=== PATIENT | female | born 1965 | race Caucasian/White ===

== ENCOUNTER 2017-04-28 19:50 | Emergency (ER) | payer MEDICAID ==
[2017-04-28] MEDS ORDERED: NS 1,000 ML IV ONE (20:02)
[2017-04-28 20:11] VITALS: RESP 16; TEMP 97.7
[2017-04-28 20:20] LABS: PLATELET COUNT 221 10^3/uL (150-400)
[2017-04-28] MEDS ORDERED: HYDROmorphONE/DILAUDID 2 MG/ML INJ IVP ONE ×2 (20:27→21:11)
[2017-04-28 20:31] LABS: INR 1.22 (0.83-1.16); PROTIME(PATIENT) 15.2 SEC (12.0-15.0)
--- NOTE | 2017-04-28 21:29 | EDPHY ---
H & P Stated Complaint: told she was preg 2.5 wks ago, bleeding 2 wks ago,now w/ cramping Time Seen by Provider: 04/28/17 19:56 HPI/ROS: This patient was seen at [facility] emergency department 2 and half weeks ago with positive -1st trimester but 2 weeks ago had significant vaginal bleeding and passed what seemed like tissue to her given the impression that she had a miscarriage. She now presents with lower belly pain 2 hr prior to arrival after mild cramping earlier in the day. She describes severe pain 9/10 intensity that is a combination of cramping and sharp pain extends to her back and feels similar to labor pains she had been years ago. She has had some ongoing vaginal spotting since the heavier bleeding 2 weeks ago. She also reports fatigue today. She took 2 Percocets at home at 4:00 p.m. With mild improvement and notes no other exacerbating factors. Her daughter drove her in by private vehicle for evaluation of her pelvic and back pain. ROS: Constitutional: No fevers, although she has had chills. HEENT: No URI symptoms or other complaints. Pulmonary: Mild cough at nights which she attributes to smoking. Cardiovascular: Mild chest tightness today 5/10 intensity. This is substernal in location radiates to her left shoulder. She denies any pleuritic pain associated with this. GI: Normal bowel movements. She does feel some bloating in her lower belly. : No urinary symptoms. Otherwise as above. Integumentary: No skin rash Endocrine no complaints. Complete review of symptoms otherwise negative. 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 General Appearance: Alert, no distress. Eyes: Pupils equal and round no pallor or injection. ENT, Mouth: Mucous membranes moist. Respiratory: There are no retractions, lungs are clear to auscultation. Cardiovascular: Regular rate and rhythm. No murmur gallop or rub Gastrointestinal: She has a large midline surgical incision scar that is clean dry intact. She has exquisite suprapubic and right lower quadrant tenderness with no guarding or rebound. Neurological: GCS 15. No focal deficits. Skin: Warm and dry, no rashes. Musculoskeletal: Neck is supple nontender. Extremities are symmetrical, full range of motion. Psychiatric: Slightly flat affect. Otherwise mood and affect are normal DIFFERENTIAL DIAGNOSIS: After history and physical exam differential diagnosis was considered for retained products of conception, ectopic , pelvic thrombosis, UTI, appendicitis, mesenteric adenitis, diverticulitis, myocardial ischemic pain, GERD Constitutional: Initial Vital Signs Temperature (C) 36.5 C 04/28/17 20:04 Heart Rate 81 04/28/17 20:04 Respiratory Rate 16 04/28/17 20:04 Blood Pressure 115/71 04/28/17 20:04 O2 Sat (%) 96 04/28/17 20:04 O2 Delivery Mode Room Air Allergies/Adverse Reactions: No Known Allergies Allergy (Verified 02/27/12 14:07) Home Medications: Medication Instructions Recorded COUMADIN 1 09/22/09 METOPROLOL SUCCINATE 50 mg PO PRN 09/22/09 URSODIOL 10/07/09 LEVOTHYROXINE SODIUM 03/18/10 Lasix 10/22/13 Ondansetron Odt [Zofran Odt] 4 - 8 mg PO Q4PRN PRN #4 tab 10/22/13 Potassium 10/22/13 Zoloft 100mg (RX) 10/22/13 Medical Decision Making - Diagnostics EKG Interpretation: 12 lead EKG performed at 10:05 p.m.-indication chest tightness Reveals sinus rhythm at 72 Intervals: Normal throughout [place]: Normal throughout ST segments: Normal throughout Overall assessment: Normal EKG Imaging: Discussed imaging studies w/ callisthenics instructor Radiologist ED Course/Re-evaluation: A review of the patient's labs reveals normal CBC, normal metabolic panel, quant that is just above negative, negative D-dimer, INR is subtherapeutic 1.2. Her urinalysis is normal exception of positive leuk esterase. IV Dilaudid 1 mg followed by 0.5 mg with ongoing pain followed by Levsin 0.25 and Toradol 30 mg IV At 10:20 p.m. I discussed the patient's ultrasound findings with Dr. Hill- left sided uterine fibroid 3.9 cm in size. No evidence of at this time retained products of conception. Appendix is not visualized. No evidence of thrombotic disease. Discussion: The patient is presentation reveals only uterine fibroid which may be responsible for her pain. She also had hyperactive bowel sounds [place] at the possibly of abdominal cramps contributing to her symptoms. Find no evidence of ectopic , pelvic thrombosis, surgical abdomen or other concerning findings. Counseled patient regarding this. Her INR is subtherapeutic and I recommended that she increase dose to 1.5 mg for the next 2 days and then 1.5 mg 2 times a week and her current 1 mg the other days with a recheck of her INR sometime the next 5-7 days. Will plan to send her out on Tylenol, tramadol Levsin for any ongoing abdominal pain with plan to follow up with OBGYN for any ongoing symptoms. Counseled regarding this and answered all her questions prior to discharge home. - Data Points Laboratory Results: Laboratory Results 04/28/17 20:15 04/28/17 20:15 04/28/17 04/28/17 04/28/17 21:59 20:15 20:15 WBC RBC Hgb Hct MCV MCH MCHC RDW Plt Count MPV Neut % (Auto) Lymph % (Auto) [place] % (Auto) Eos % (Auto) Baso % (Auto) Nucleat RBC Rel Count Absolute Neuts (auto) Absolute Lymphs (auto) Absolute Monos (auto) Absolute Eos (auto) Absolute Basos (auto) Absolute Nucleated RBC Immature Gran % Immature Gran # PT 15.2 SEC H SEC (12.0-15.0) INR 1.22 H (0.83-1.16) D-Dimer < 0.27 ug/mLFEU ug/mLFEU (0.00-0.50) Sodium Potassium Chloride Carbon Dioxide Anion Gap BUN Creatinine Estimated GFR Glucose Calcium Beta HCG, Quant Urine Color YELLOW Urine Appearance CLEAR Urine pH 6.5 (5.0-7.5) Ur Specific [place] 1.010 (1.002-1.030) Urine Protein NEGATIVE (NEGATIVE) Urine Ketones NEGATIVE (NEGATIVE) Urine Blood TRACE H (NEGATIVE) Urine Nitrate NEGATIVE (NEGATIVE) Urine Bilirubin NEGATIVE (NEGATIVE) Urine Urobilinogen 0.2 EU EU (0.2-1.0) Ur Leukocyte Esterase TRACE H (NEGATIVE) Urine RBC 1-3 /hpf /hpf (0-3) Urine WBC 1-3 /hpf /hpf (0-3) Ur Epithelial Cells NONE SEEN /lpf /lpf (NONE-1+) Urine Bacteria TRACE /hpf H /hpf (NONE SEEN) Urine Mucus 1+ /lpf /lpf (NONE-1+) Urine Glucose NEGATIVE (NEGATIVE) 04/28/17 04/28/17 20:15 20:15 WBC 5.71 10^3/uL 10^3/uL (3.80-9.50) RBC 4.69 10^6/uL 10^6/uL (4.18-5.33) Hgb 13.7 g/dL g/dL (12.6-16.3) Hct 41.0 % % (38.0-47.0) MCV 87.4 fL fL (81.5-99.8) MCH 29.2 pg pg (27.9-34.1) MCHC 33.4 g/dL g/dL (32.4-36.7) RDW 13.9 % % (11.5-15.2) Plt Count 221 10^3/uL 10^3/uL (150-400) MPV 10.2 fL fL (8.7-11.7) Neut % (Auto) 59.2 % % (39.3-74.2) Lymph % (Auto) 31.9 % % (15.0-45.0) [place] % (Auto) 6.7 % % (4.5-13.0) Eos % (Auto) 1.6 % % (0.6-7.6) Baso % (Auto) 0.4 % % (0.3-1.7) Nucleat RBC Rel Count 0.0 % % (0.0-0.2) Absolute Neuts (auto) 3.39 10^3/uL 10^3/uL (1.70-6.50) Absolute Lymphs (auto) 1.82 10^3/uL 10^3/uL (1.00-3.00) Absolute Monos (auto) 0.38 10^3/uL 10^3/uL (0.30-0.80) Absolute Eos (auto) 0.09 10^3/uL 10^3/uL (0.03-0.40) Absolute Basos (auto) 0.02 10^3/uL 10^3/uL (0.02-0.10) Absolute Nucleated RBC 0.00 10^3/uL 10^3/uL (0-0.01) Immature Gran % 0.2 % % (0.0-1.1) Immature Gran # 0.01 10^3/uL 10^3/uL (0.00-0.10) PT INR D-Dimer Sodium 140 mEq/L mEq/L (135-145) Potassium 3.6 mEq/L mEq/L (3.5-5.2) Chloride 110 mEq/L mEq/L (97-110) Carbon Dioxide 22 mEq/l mEq/l (22-31) Anion Gap 8 mEq/L mEq/L (8-16) BUN 13 mg/dL mg/dL (7-23) Creatinine 0.8 mg/dL mg/dL (0.6-1.0) Estimated GFR > 60 Glucose 99 mg/dL mg/dL (70-100) Calcium 9.7 mg/dL mg/dL (8.5-10.4) Beta HCG, Quant 5.65 mIU/mL H mIU/mL (0.00-4.83) Urine Color Urine Appearance Urine pH Ur Specific [place] Urine Protein Urine Ketones Urine Blood Urine Nitrate Urine Bilirubin Urine Urobilinogen Ur Leukocyte Esterase Urine RBC Urine WBC Ur Epithelial Cells Urine Bacteria Urine Mucus Urine Glucose Medications Given: Discontinued Medications Hydromorphone HCl (Dilaudid) 1 mg IVP EDNOW ONE Stop: 04/28/17 20:28 Last Admin: 04/28/17 20:36 Dose: 1 mg Hydromorphone HCl (Dilaudid) 0.5 mg IVP EDNOW ONE Stop: 04/28/17 21:12 Last Admin: 04/28/17 21:14 Dose: 0.5 mg Hyoscyamine Sulfate (Levsin, Hyomax-Sl) 0.25 mg PO EDNOW ONE Stop: 04/28/17 21:59 Last Admin: 04/28/17 22:14 Dose: 0.25 mg Sodium Chloride (Ns) 1,000 mls @ 0 mls/hr IV EDNOW ONE; Wide Open PRN Reason: Protocol Stop: 04/28/17 20:03 Last Admin: 04/28/17 20:27 Dose: 1,000 mls Ketorolac Tromethamine (Toradol) 30 mg IVP EDNOW ONE Stop: 04/28/17 22:09 Last Admin: 04/28/17 22:14 Dose: 30 mg Departure - Departure Disposition: Home, Routine, Self-Care Clinical Impression: Uterine fibroid Qualifiers: Uterine leiomyoma location: unspecified location Qualified Code(s): D25.9 - Leiomyoma of uterus, unspecified Condition: Good Instructions: Pelvic Pain in Women (ED) Additional Instructions: Diagnosis: Uterine fibroid A ultrasound revealed no existing at this time. He had a miscarriage. He also have a uterine fibroid 3.9 cm in size may be contributing to ear pain. Your INR is currently subtherapeutic at 1.2. Plan: Take 1.5 mg of Coumadin for the next 2 days and then take 1 mg daily but 1.5 mg 2 times a week for instance on Friday and Friday. Recheck your INR in 5-7 days. For pain-take Levsin and tramadol and Tylenol as needed. No driving, alcohol or come tramadol. Follow up with her OBGYN physician for any ongoing symptoms Return emergency department for any significant worsening despite the treatment plan. Referrals: CASSI HYLTON MD [Other] - As per Instructions
[2017-04-28] MEDS ORDERED: HYOSCYAMINE SULFATE 0.125 MG TAB PO ONE (21:58)
--- NOTE | 2017-04-28 22:07 | CPEKG ---
Heart Rate: 72 RR Interval: 833 P-R Interval: 152 QRSD Interval: 82 QT Interval: 420 QTC Interval: 460 P [place]: 24 QRS [place]: 50 T Wave [place]: 52 EKG Severity - NORMAL ECG - EKG Impression: SINUS RHYTHM Electronically Signed By: Lalo Carreno 28-Apr-2017 22:30:18
[2017-04-28] MEDS ORDERED: KETOROLAC 30 MG/1 ML SDV IVP ONE (22:08)
[2017-04-28 22:56] VITALS: BP 120/72; PULSE 78; O2SAT 99
== END 2017-04-28 22:50 | disposition home or self-care (01) ==
LOC: CED 19:50
DX: D25.9 Leiomyoma of uterus, unspecified (principal); F17.210 Nicotine dependence, cigarettes, uncomplicated; I10 Essential (primary) hypertension; E86.9 Volume depletion, unspecified; Z79.01 Long term (current) use of anticoagulants; Z90.49 Acquired absence of other specified parts of digestive tract
CPT/HCPCS: 76705-PO; 80048-PO; 81003-PO; 81015-PO; 84702-PO; 85025-PO; 85378-PO; 85610-PO; 96374; J1170; J1885

== ENCOUNTER 2017-07-01 18:23 | Emergency (ER) | payer MEDICAID ==
[2017-07-01] MEDS ORDERED: NS 1,000 ML IV ONE ×2 (18:54→19:07)
[2017-07-01] MEDS ORDERED: fentaNYL 100 MCG/2 ML INJ IVP ONE (19:07)
[2017-07-01] MEDS ORDERED: ONDANSETRON 4 MG/2 ML VIAL IVP ONE (19:07)
[2017-07-01 19:16] LABS: PLATELET COUNT 174 10^3/uL (150-400)
[2017-07-01 19:31] LABS: INR 1.23 (0.83-1.16); PROTIME(PATIENT) 15.3 SEC (12.0-15.0)
[2017-07-01] MEDS ORDERED: HYDROmorphONE/DILAUDID 2 MG/ML INJ IVP ONE (19:52)
--- NOTE | 2017-07-01 21:19 | EDPHY ---
H & P Time Seen by Provider: 07/01/17 18:40 HPI/ROS: CHIEF COMPLAINT: Left flank pain HISTORY OF PRESENT ILLNESS: Patient states she developed left flank pain yesterday. Initially mild but constant with significant worsening after around 3 o'clock today. She has some nausea but no vomiting or diarrhea. She does describe some burning with urination over the same period of time. She has had chills but no fever. She states that it feels like previous kidney stones. She describes episode approximately 2 months ago where she had multiple stones and required a stent. She was under the care Dr. Griffin. She denies shortness of breath, chest pain, headache. She has had no other recent illnesses. REVIEW OF SYSTEMS: Constitutional: No fever, no chills. Eyes: No discharge. ENT: No sore throat. Cardiovascular: No chest pain, no palpitations. Respiratory: No cough, no shortness of breath. Gastrointestinal: Per HPI Genitourinary: Per HPI Musculoskeletal: No back pain. Skin: No rashes. Neurological: No headache. General Appearance: Alert, moderate distress. Eyes: Pupils equal and round no pallor or injection. ENT, Mouth: Mucous membranes moist. Respiratory: There are no retractions, lungs are clear to auscultation. Cardiovascular: Regular rate and rhythm. Gastrointestinal: Abdomen is soft with some tenderness to the left flank region. Bilateral CVA tenderness left greater than right, no masses, bowel sounds normal. Neurological: Alert, no focal deficits. Skin: Warm and dry, no rashes. Musculoskeletal: Neck is supple nontender. Extremities are symmetrical, full range of motion, no edema. Psychiatric: Patient is oriented X 3, there is no agitation. Medical/surgical history: Renal stones with stenting. Liver resection, cholecystectomy, hepatitis-B, heart ablation, pulmonary embolism, thyroid disorder, hypertension. Social history: Former smoker. Smoking Status: Former smoker Constitutional: Initial Vital Signs Temperature (C) 36.5 C 07/01/17 18:42 Heart Rate 63 07/01/17 18:42 Respiratory Rate 18 07/01/17 18:42 Blood Pressure 141/77 H 07/01/17 18:42 O2 Sat (%) 97 07/01/17 18:42 O2 Delivery Mode Room Air Allergies/Adverse Reactions: No Known Allergies Allergy (Verified 07/01/17 18:41) Home Medications: Medication Instructions Recorded COUMADIN 1 09/22/09 METOPROLOL SUCCINATE 50 mg PO PRN 09/22/09 URSODIOL 10/07/09 LEVOTHYROXINE SODIUM 03/18/10 Lasix 10/22/13 Ondansetron Odt [Zofran Odt] 4 - 8 mg PO Q4PRN PRN #4 tab 10/22/13 Potassium 10/22/13 Zoloft 100mg (RX) 10/22/13 Hyoscyamine Sulfate [Levsin, 0.125 - 0.25 mg SL Q6 PRN #20 tab 04/28/17 Hyomax-Sl 0.125 mg (*)] traMADol [Ultram 50 mg (*)] 50 - 100 mg PO Q4 PRN #20 tab 04/28/17 Cephalexin [Keflex (*)] 500 mg PO QID #28 cap 07/01/17 Medical Decision Making ED Course/Re-evaluation: Multiple re-evaluations during ED course. Symptoms improved but never completely resolved in regards to pain and nausea. CT scan shows bilateral nephrolithiasis but no signs of obstructive stone. No other abnormalities as discussed with radiologist. Patient offered admission as pain control poor in the emergency department but she declined. She was given antibiotics in the emergency department for likely pyelonephritis. She will be continued on oral antibiotics as outpatient. I discussed with her the importance of complete treatment of this infection and encouraged her to return to the emergency department if she worsens in any way. Differential Diagnosis: Differential diagnosis includes but not limited to kidney stone, pyelonephritis , perinephric abscess, other acute intra-abdominal process. After evaluation likely pyelonephritis without signs of obstructing stone or other acute intra- abdominal abnormality. Patient without signs of urosepsis and although she declined admission likely will do well if she takes antibiotics as prescribed. Encouraged to see her primary care physician in the next few days. Understands return precautions. Stable for discharge. - Data Points Laboratory Results: Laboratory Results 07/01/17 19:03 07/01/17 19:03 Medications Given: Discontinued Medications Hydrocodone Bitart/Acetaminophen ([place] 5/325mg Prepack#6) 1 btl TAKEHOME EDNOW ONE Stop: 07/01/17 21:22 Last Admin: 07/01/17 21:35 Dose: 1 btl Fentanyl (Sublimaze) 50 mcg IVP EDNOW ONE Stop: 07/01/17 19:08 Last Admin: 07/01/17 19:17 Dose: 50 mcg Hydromorphone HCl (Dilaudid) 1 mg IVP EDNOW ONE Stop: 07/01/17 19:53 Last Admin: 07/01/17 19:58 Dose: 1 mg Sodium Chloride (Ns) 1,000 mls @ 0 mls/hr IV EDNOW ONE; Wide Open PRN Reason: Protocol Stop: 07/01/17 18:55 Last Admin: 07/01/17 19:17 Dose: 1,000 mls Sodium Chloride (Ns) 1,000 mls @ 0 mls/hr IV EDNOW ONE; Wide Open PRN Reason: Protocol Stop: 07/01/17 19:08 Last Admin: 07/01/17 19:58 Dose: 1,000 mls Ceftriaxone Sodium/Dextrose (Rocephin 1 Gm (Premix)) 50 mls @ 100 mls/hr IV EDNOW ONE PRN Reason: Protocol Stop: 07/01/17 20:34 Last Admin: 07/01/17 20:17 Dose: 50 mls Ondansetron HCl (Zofran) 4 mg IVP EDNOW ONE Stop: 07/01/17 19:08 Last Admin: 07/01/17 19:17 Dose: 4 mg Ondansetron HCl (Zofran Odt 4 Mg Prepack#2) 1 btl TAKEHOME EDNOW ONE Stop: 07/01/17 21:22 Last Admin: 07/01/17 21:34 Dose: 1 btl Departure - Departure Disposition: Home, Routine, Self-Care Clinical Impression: Acute pyelonephritis Condition: Fair Instructions: Hydrocodone/Acetaminophen (By mouth), Ondansetron (By mouth), Urinary Tract Infection in Women (ED) Additional Instructions: Stay well hydrated, start antibiotics 1st thing tomorrow morning. [place] for pain and Zofran for nausea. Follow up with her primary care physician in the next 1 to 2 days without fail. Return to the emergency department if symptoms worsen. Referrals: CASSI MARQUIS [Other] - As per Instructions Prescriptions: Cephalexin [Keflex (*)] 500 mg PO QID #28 cap
[2017-07-01] MEDS ORDERED: HYDROCOD/APAP 5/325 PREPACK#6 BTL TAKEHOME ONE (21:21)
[2017-07-01] MEDS ORDERED: ONDANSETRON 4MG PREPACK#2 BTL TAKEHOME ONE (21:21)
[2017-07-01 21:27] VITALS: BP 119/70
== END 2017-07-01 21:42 | disposition home or self-care (01) ==
LOC: CED 18:23
DX: N10 Acute pyelonephritis (principal); B96.89 Other specified bacterial agents as the cause of diseases classified elsewhere; E86.9 Volume depletion, unspecified; Z87.891 Personal history of nicotine dependence
CPT/HCPCS: 74176-PO; 80048-PO; 80076-PO; 81003-PO; 81015-PO; 83690-PO; 85025-PO; 85610-PO; 85730-PO; 96365; J0696; J1170; J2405; J3010

== ENCOUNTER 2017-11-24 18:50 | Emergency (ER) | payer MEDICAID ==
[2017-11-24] MEDS ORDERED: traMADol 50 MG TAB PO ONE (19:18)
[2017-11-24] MEDS ORDERED: ACETAMINOPHEN 500 MG TAB PO ONE (19:18)
[2017-11-24 19:30] VITALS: BP 99/57
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
== END 2017-11-24 19:29 | disposition home or self-care (01) ==
LOC: CED 18:50
DX: T24.211A Burn of second degree of right thigh, initial encounter (principal); F17.200 Nicotine dependence, unspecified, uncomplicated; X12.XXXA Contact with other hot fluids, initial encounter; Y92.9 Unspecified place or not applicable; Y93.9 Activity, unspecified; Y99.9 Unspecified external cause status

== ENCOUNTER → 2018-04-02 | Outpatient (CLI) | payer MEDICAID | LOC: FIMAGING 18:42 | PROVIDERS: ATTEND Psychiatry & Neurology Neurology | DX: R56.9 Unspecified convulsions (principal) ==

== ENCOUNTER 2018-04-11 16:14 | Emergency (ER) | payer MEDICAID ==
[2018-04-11 16:29] VITALS: BP 101/61
--- NOTE | 2018-04-11 16:51 | EDPHY ---
H & P Time Seen by Provider: 04/11/18 16:28 HPI/ROS: HPI Sore throat, muscle aches and body aches. 52-year-old female by private vehicle with her . This patient reports 2 day onset of fever, sore throat, muscle aches and body aches, nasal congestion with clear rhinorrhea, intermittent headache, fatigue. ROS: Constitutional: As above. Eyes: No discharge. No changes in vision. ENT: As above. Respiratory: No cough. No shortness of breath. Cardiac: No chest pain, no palpitations. Gastrointestinal: No abdominal pain, no vomiting, no diarrhea. Genitourinary: No hematuria. No dysuria or increased frequency with urination. Musculoskeletal: No back pain. No neck pain. As above. Skin: No rashes. Neurological: As above. No focal weakness or altered sensation. Past medical history: Renal stones with stenting, liver resection, hepatitis-B , hypertension, pulmonary embolism, on Coumadin, heart ablation, hypothyroid. Social history: Former smoker. No alcohol. Here with her . Physical Exam: General Appearance: Alert, she appears uncomfortable but not in distress. This patient is responding to questions appropriately and in full sentences. This patient appears well-hydrated and well-nourished. Eyes: Pupils equal and round no pallor or injection. No lid edema, erythema or injection. ENT, Mouth: Mucous membranes are moist. Diffuse uvular and posterior pharyngeal erythema with mild edema. No asymmetry suggestive of abscess. No exudates. No stridor on auscultation of her neck. Her upper airway sounds are normal. No voice changes. No cervical, submandibular, submental lymphadenopathy. Respiratory: There are no retractions, lungs are clear to auscultation with good air movement bilaterally. Cardiovascular: Regular rate and rhythm. No murmur. Neurological: Motor sensory function is grossly intact. Cranial nerves are normal. Gait is normal. Skin: Warm and dry, no rashes. Musculoskeletal: Neck is supple and nontender. No pain on flexion of her neck. Extremities are symmetrical. All joints range without pain or impingement. Psychiatric: No agitation. No depression. Database: Strep-negative. EKG: Imaging: Procedures: Emergency department course: Triage vital signs reviewed and are within normal limits. Strep assay ordered. The patient does not want to take ibuprofen secondary to her Coumadin. She also cannot take Tylenol because of her history of hepatitis-B and liver resection. She tells me however that she took Percocet prior to coming to the emergency department. She also took morphine this morning. She takes narcotics for chronic pain. She is aware the Percocet contains Tylenol. Her presentation is most consistent with influenza. I discussed treating her with Tamiflu. She currently is at 48 hr of symptom onset. She would like to be prescribed this medication. She does feel comfortable going home with her . She has been instructed to follow up with her primary care physician on Friday for re-evaluation. Supportive care was discussed with her. Return to emergency department precautions reviewed with both her and her . All of their questions were answered. The patient was discharged in good condition with her . Differential Diagnosis: The differential diagnosis on this patient includes but is not limited to influenza, viral syndrome, streptococcal pharyngitis. Retropharyngeal abscess, peritonsillar abscess, tracheitis, epiglottitis unlikely. This represents a partial list of diagnoses considered. These considerations are based on history , physical exam, past history, reassessment and diagnostic testing. Smoking Status: Former smoker Constitutional: Initial Vital Signs Temperature (C) 37.2 C 04/11/18 16:24 Heart Rate 94 04/11/18 16:24 Respiratory Rate 16 04/11/18 16:24 Blood Pressure 101/61 04/11/18 16:24 O2 Sat (%) 94 04/11/18 16:24 O2 Delivery Mode Room Air Allergies/Adverse Reactions: gabapentin Allergy (Verified 04/11/18 16:19) zolpidem [From Ambien] Allergy (Verified 04/11/18 16:19) Home Medications: Medication Instructions Recorded COUMADIN 1 09/22/09 METOPROLOL SUCCINATE 50 mg PO PRN 09/22/09 URSODIOL 10/07/09 LEVOTHYROXINE SODIUM 03/18/10 Lasix 10/22/13 Ondansetron Odt [Zofran Odt] 4 - 8 mg PO Q4PRN PRN #4 tab 10/22/13 Potassium 10/22/13 Zoloft 100mg (RX) 10/22/13 Hyoscyamine Sulfate [Levsin, 0.125 - 0.25 mg SL Q6 PRN #20 tab 04/28/17 Hyomax-Sl 0.125 mg (*)] Keppra 04/11/18 Oseltamivir Phosphate [Tamiflu 75 75 mg PO BID #10 cap 04/11/18 mg (RX)] Percocet 5-325 mg Tablet 04/11/18 Medical Decision Making - Data Points Medications Given: Discontinued Medications Oseltamivir Phosphate (Tamiflu) 75 mg PO EDNOW ONE Stop: 04/11/18 17:13 Last Admin: 04/11/18 17:20 Dose: 75 mg Point of Care Test Results: Strep Strep Throat Swab Collection 04/11/18 Date Strep Throat Swab Swab 16:40 Collection Time Strep Result Not Detected Departure - Departure Disposition: Home, Routine, Self-Care Clinical Impression: Influenza Condition: Good Instructions: Oseltamivir (By mouth), Influenza (ED) Additional Instructions: Read and follow provided instructions. Follow-up with your primary care physician on Friday for re-evaluation as discussed. Take your medication as prescribed. Take Tamiflu, influenza antibiotic as prescribed through entire course of treatment. Keep yourself well hydrated. Drink lots of fluids. Get plenty of rest. Return to the emergency department for worsening symptoms, worsening sore throat , difficulty breathing, voice changes or other serious concerns. Referrals: Cherelle Martel DO [Primary Care Provider] - As per Instructions Prescriptions: Oseltamivir Phosphate [Tamiflu 75 mg (RX)] 75 mg PO BID #10 cap
[2018-04-11] MEDS ORDERED: OSELTAMIVIR PHOSPHATE 75 MG CAP PO ONE (17:12)
== END 2018-04-11 17:20 | disposition home or self-care (01) ==
LOC: CED 16:14
DX: J11.1 Influenza due to unidentified influenza virus with other respiratory manifestations (principal)
CPT/HCPCS: 99283-ER

== ENCOUNTER → 2018-05-26 | Outpatient (CLI) | payer MEDICAID ==
--- NOTE | 2018-05-26 14:41 | CPEEG ---
[f rep st] ELECTROENCEPHALOGRAM FOUR-HOUR VIDEO EEG DATE OF STUDY: 05/26/2018 DATE OF INTERPRETATION: 05/26/2018 INTERPRETATION: This 4-hour video EEG recording is normal. There were no potentially epileptogenic abnormalities present during the awake or sleep recordings. The patient did not have any clinical ev ents during the video EEG monitoring session. REPORT: This 4-hour video EEG contains 9 hertz alpha activity to the posterior head regions. There was no abnormal activation at rest, during photic stimulation or hyperventilation. The patient becam e drowsy and fell asleep during the study. During drowsiness, there was bitemporal theta activity, w hich is a normal drowsy variant. There was no abnormal activation during drowsiness, sleep, or durin g times of arousal. The patient did not have any clinical events during the video EEG monitoring jeimy agarwal. /[id number]/MODL
== END ==
LOC: FCPNEURO 08:15
PROVIDERS: ATTEND Psychiatry & Neurology Neurology
DX: R56.9 Unspecified convulsions (principal)

== ENCOUNTER 2018-07-11 21:18 | Emergency (ER) | payer MEDICAID ==
[2018-07-11] MEDS ORDERED: NS 1,000 ML IV ONE (21:48)
[2018-07-11] MEDS ORDERED: MAG HYDROX/AL HYDROX/SIMETH 30 ML UDCUP PO ONE (21:48)
[2018-07-11] MEDS ORDERED: LIDOCAINE 2% VISCOUS 15 ML UDCUP PO ONE (21:48)
[2018-07-11] MEDS ORDERED: ONDANSETRON 4 MG/2 ML VIAL IVP ONE ×2 (21:51→22:56)
--- NOTE | 2018-07-11 21:51 | EDPHY ---
H & P Smoking Status: Former smoker Time Seen by Provider: 07/11/18 21:36 HPI/ROS: Chief complaint. Abdominal pain HPI. 52-year-old female with upper abdominal pain for 1 week. Upper mid abdominal pain radiating through to her back. Nausea without vomiting or diarrhea. No change with eating or position. She tried Zantac and Prilosec without relief. She says it feels similar to when she had hepatitis-B and needed liver resection. She has had chills but no fever. No chest pain or shortness of breath. No urinary symptoms. ROS 10 systems were reviewed and negative with the exception of the elements mentioned in the history of present illness (Jaxson Philip) Past Medical/Surgical History: Kidney stones with stents, liver resection, hepatitis-B, hypertension, pulmonary embolus on Coumadin, heart ablation, hypothyroid (Jaxson Philip) Social History: , nonsmoker, no alcohol (Jaxson Philip) Physical Exam: General Appearance: Alert pleasant well-developed female mild distress vital signs are stable Eyes: Pupils equal and round no pallor or injection. ENT, Mouth: Mucous membranes are moist. Respiratory: There are no retractions, lungs are clear to auscultation. Cardiovascular: Regular rate and rhythm. Gastrointestinal: Abdomen is soft with tenderness in the epigastrium. No masses. Normal bowel sounds Neurological: Awake and alert, sensory and motor exams grossly normal. Skin: Warm and dry, no rashes. Musculoskeletal: Neck is supple nontender. Extremities symmetrical, full range of motion. Psychiatric: Patient is oriented X 3, there is no agitation. (Jaxson Philip) Constitutional: Initial Vital Signs Temperature (C) 36.5 C 07/11/18 21:46 Heart Rate 85 07/11/18 21:46 Respiratory Rate 18 07/11/18 21:46 Blood Pressure 100/54 L 07/11/18 21:46 O2 Sat (%) 97 07/11/18 21:46 O2 Delivery Mode Room Air Allergies/Adverse Reactions: gabapentin Allergy (Verified 04/11/18 16:19) prednisone Allergy (Verified 07/11/18 22:34) zolpidem [From Ambien] Allergy (Verified 04/11/18 16:19) Home Medications: Medication Instructions Recorded COUMADIN 1 09/22/09 METOPROLOL SUCCINATE 50 mg PO PRN 09/22/09 URSODIOL 10/07/09 LEVOTHYROXINE SODIUM 03/18/10 Potassium 10/22/13 Zoloft 100mg (RX) 10/22/13 Cholecalciferol Vit D3 [Vitamin D3 07/11/18 2000 units tab (OTC)] Eszopiclone [Lunesta] 07/11/18 Omeprazole Magnesium [Prilosec] 07/11/18 Ondansetron Odt [Zofran Odt] 4 mg PO 07/11/18 Pregabalin [Lyrica 150mg (*)] 07/11/18 Vits96/Iron Fum/Folic 07/11/18 [ Tablet] Ranitidine HCl [Zantac] 07/11/18 Tamsulosin HCl [Flomax] 0.4 mg PO 07/11/18 Vit C/Ascorb Sod/Multivit-Min 07/11/18 [Emergen-C 500 mg Chewable Tab] levETIRAcetam [Keppra 500 mg (*)] 07/11/18 morphINE IR 15 mg (*) 07/11/18 oxyCODONE HCL/ACETAMINOPHEN 07/11/18 [Percocet 5-325 mg Tablet] Amox Tr/K Clav (Augmentin) 875 mg PO Q12 #20 tab 07/12/18 [Augmentin 500/125 MG TAB (*)] Hydromorphone HCl 2 - 4 mg PO Q6 PRN #18 tablet 07/12/18 Vitamin B Complex 07/12/18 Medical Decision Making Procedures: IV normal saline. Morphine for pain. Zofran for nausea. GI cocktail (Jaxson Philip) Differential Diagnosis: Differential diagnosis includes, but is not limited to: Gastroenteritis, dehydration, diverticulitis, hepatitis, pancreatitis, renal colic, kidney stones, ureterolithiasis, cholecystitis, appendicitis, gastritis, mesenteric adenitis, food poisoning, bacterial dysentery. (Rob Flor) Other Provider: Care assumed at [2300] hours. Case discussed with the off going physician. Chart reviewed. Patient interviewed and examined. CHIEF COMPLAINT: [Right upper quadrant abdominal pain for 1 week ] HISTORY OF PRESENT ILLNESS: [ This is a 52-year-old female who was followed by the GI of the [facility] for her problems related to hepatitis B in 1989 that ultimately led to a partial liver resection as well as cholecystectomy. She has had to have her have a colonoscopy although did complete the stool specimen for colonic cancer detection, which was negative. There is no family history of colonic cancer. She is monitored by the GI center periodically for liver function abnormalities. She is managed by her PCP and pain management doctors for chronic lumbar pain as well as fibromyalgia. Her abdominal pain has continued as noted below despite her continue with her usual routine pain management program. She 1st started noticing a mild upper abdominal distress that progressed to a pain over the course of 7-6 days ago. Pain has been localized to that vicinity and over time his expanded to include the right a upper quadrant as well as radiating around back to the back. Wears of mild at 1st became moderate than a progressively severe. She describes as a sharp sensation. It is somewhat worse when she eats, so she has been trying to cut down as much she eats. The pain does not go into the chest nor into the lower belly. There has been no bowel habit changes. She has not noticed it to be either constipated or having diarrhea. She has trialed at home both Prilosec and Zantac taking both each day for the last week. By a large she takes the Prilosec at lunch and the Zantac twice a day morning and night. There is no improvement.] P: Worse with eating but not position Q: Describes as a sharp, severe pain R: Epigastric progressively to include the right upper quadrant as well as radiating around to the back S: Severe T: Progressive over the last week, steady. REVIEW OF SYSTEMS: Constitutional: No fever, no chills. Eyes: No discharge ENT: No sore throat. Cardiovascular: No chest pain, no palpitations. Respiratory: No cough, shortness of breath, or wheezing. Gastrointestinal: See above. Genitourinary: No hematuria or frequency. Musculoskeletal: Chronic LBP, with a new mid T pain from tyhe abd pain radiating. Skin: No rashes. Neurological: No headache. [A 10 system review of systems was performed and is negative except for the noted findings in the HPI.] Past surgeries: Liver resection for a mass at the timer hepatitis-B in 1989 - [facility], 6 months later-[facility] General Appearance: Alert, in apparent distress, from pain, but hemodynamically stable without any diaphoresis.. Afebrile. Normal phonation. No respiratory distress. Good eye contact, articulate. Eyes: Pupils equal and round no pallor or injection. No icterus ENT, Mouth: Mucous membranes [moist] Pharynx without erythema or exudate. TM Clear. Neck: No adenopathy. Supple. No JVD. Trachea in midline. Respiratory: There are no retractions, lungs are clear to auscultation. Cardiovascular: Regular rate and rhythm, no murmur. Abdomen: 2, large well-healed scars in the upper abdomen. Soft tender in all 4 quadrants but particularly so in the right upper quadrant and to a lesser extent the left upper quadrant. She is tender to percussion. However there is no guarding or rebound. Neurological: Ox3. No motor weakness. Sensation intact. Gait nl. Skin: Warm and dry, no rashes. Musculoskeletal: No joint swelling. Extremities: No edema. Homans sign negative. No cords. Psychiatric: Normal affect. [Patient is oriented X 3.] [There is no agitation ] Shortly before I assumed the case the patient had been in the x-ray department and was unable to complete the CT scan on the 1st car around because the vomiting. Subsequent was completed. We are waiting for the results. Due to the above findings of significant abdominal tenderness and in apparent pain she was given Dilaudid 1 mg IV which had to be repeated for optimal relief. Laboratory findings included: CBC normal Electrolytes normal LFTs normal Lipase normal Urinalysis: CT scan of the abdominal area revealed inflammation of the ascending colon and to a lesser extent the hepatic flexure. Normal appearing appendix. Equivocal mild wall thickening and faint pericolonic edema of the cecum ascending colon: Films reviewed by me on the PACS. In light of the clinical course and abdominal findings I believe were dealing with diverticulitis of the ascending into the transverse colon. However, if she does not have prompt improvement on antibiotic therapy I would also consider a possibility of a constricting, apple core type cancer. Given the fact that the rest of the colon is normal and there is no diarrhea I doubt were dealing with any bacterial dysentery type picture. We readied the medications for her to go home including: Starting dose of Augmentin Dilaudid to take home Prescriptions for both (Rob Flor) Care Turn Over: care to Dr. Flor at 11 pm (Jaxson Philip) - Data Points Medications Given: Discontinued Medications Al Hydroxide/Mg Hydroxide (Maalox Susp) 30 ml PO ONCE ONE Stop: 07/11/18 21:49 Last Admin: 07/11/18 22:10 Dose: 30 ml Amoxicillin/Clavulanate Potassium (Augmentin 875mg) 875 mg PO EDNOW ONE PRN Reason: Protocol Stop: 07/12/18 00:58 Last Admin: 07/12/18 01:10 Dose: 875 mg Hydromorphone HCl (Dilaudid) 1 mg IVP EDNOW ONE Stop: 07/11/18 23:49 Last Admin: 07/11/18 23:55 Dose: 1 mg Hydromorphone HCl (Dilaudid) 1 mg IVP EDNOW ONE Stop: 07/12/18 00:12 Last Admin: 07/12/18 00:16 Dose: 1 mg Hydromorphone HCl (Dilaudid) 8 mg PO EDNOW ONE Stop: 07/12/18 00:49 Last Admin: 07/12/18 01:09 Dose: 8 mg Sodium Chloride (Ns) 1,000 mls @ 0 mls/hr IV EDNOW ONE; Wide Open PRN Reason: Protocol Stop: 07/11/18 21:49 Last Admin: 07/11/18 22:09 Dose: 1,000 mls Lidocaine (Lidocaine 2% Viscous) 15 ml PO ONCE ONE Stop: 07/11/18 21:49 Last Admin: 07/11/18 22:10 Dose: 15 ml Morphine Sulfate (Morphine) 4 mg IVP EDNOW ONE Stop: 07/11/18 21:49 Last Admin: 07/11/18 22:10 Dose: 4 mg Ondansetron HCl (Zofran) 4 mg IVP EDNOW ONE Stop: 07/11/18 21:52 Last Admin: 07/11/18 22:10 Dose: 4 mg Ondansetron HCl (Zofran) 4 mg IVP EDNOW ONE Stop: 07/11/18 22:57 Last Admin: 07/11/18 22:50 Dose: 4 mg Point of Care Test Results: CBC CBC Collection Date 07/11/18 CBC Collection Time 21:45 WBC 5.84 RBC 4.76 HGB 14.4 HCT 42.7 PLT 145 Neut # 3.98 Neut 68.1 LYMPH # 1.57 LYMPH 26.9 MCV 89.7 Chemistry 07/11/18 07/11/18 22:12 21:56 POC Sodium 137 mEq/L mEq/L (135-145) POC Potassium 3.2 mEq/L L mEq/L (3.3-5.0) POC Chloride 106.0 mEq/L mEq/L (97-110) POC Total CO2 28 mEq/L mEq/L (22-31) POC BUN 8 mg/dL mg/dL (7-23) POC Creatinine 0.9 mg/dL mg/dL (0.6-1.0) POC Glucose 120 mg/dL H mg/dL (70-100) POC Calcium 9.8 mg/dL mg/dL (8.5-10.4) POC Total Bilirubin 0.6 mg/dL mg/dL 0.7 mg/dL mg/dL (0.1-1.4) (0.1-1.4) POC GGT 20 IU/L IU/L (5-65) POC AST 33 IU/L IU/L 29 IU/L IU/L (14-46) (14-46) POC ALT 18 IU/L IU/L 24 IU/L IU/L (9-52) (9-52) POC Alk Phosphatase 78 IU/L IU/L 74 IU/L IU/L (38-126) (38-126) POC Total Protein 6.4 g/dL g/dL 6.4 g/dL g/dL (6.3-8.2) (6.3-8.2) POC Albumin 3.8 g/dL g/dL 3.8 g/dL g/dL (3.5-5.0) (3.5-5.0) POC Amylase 68 IU/L IU/L (30-110) Liver Function Tests LFT Collection Date 07/11/18 LFT Collection Time 22:05 Urine Dip Collection Date 07/11/18 Collection Time 21:20 Specific [place] (1.002-1.030) 1.010 PH (5.0-7.5) 5.5 Leukocytes (Negative) Negative Nitrites (Negative) Negative Protein (Negative) Negative Glucose (Negative) Negative Ketones (Negative) Negative Urobilnogen (0.2-1.0 EU) 0.2 Bilirubin (Negative) Negative Blood (Negative) 1+ Departure - Departure Disposition: Home, Routine, Self-Care Clinical Impression: Diverticula of colon Abdominal pain Qualifiers: Abdominal location: right upper quadrant Qualified Code(s): R10.11 - Right upper quadrant pain Condition: Good Instructions: Diverticulitis (ED), Acute Abdominal Pain (ED), Diverticulitis Diet (ED) Additional Instructions: For your PAIN: Continue to take her usual pain medication regimen. Add Dilaudid for additional pain in the abdomen. For the diverticulitis: Augmentin 875 by mouth. 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 Call in the morning on Friday and asked for an appointment. No work for the next 5 days Referrals: Patient,NotPresent [Primary Care Provider] - As per Instructions Vinicio Amaya MD [Medical Doctor] - As per Instructions Stand Alone Forms: Work Excuse Prescriptions: Amox Tr/K Clav (Augmentin) [Augmentin 500/125 MG TAB (*)] 875 mg PO Q12 #20 tab Hydromorphone HCl 2 - 4 mg PO Q6 PRN #18 tablet PRN Reason: moderate to severe pain
[2018-07-11] MEDS ORDERED: IOPAMIDOL (ISOVUE-300) 100 ML BTL ONE ×2 (22:10→22:45)
[2018-07-11] MEDS ORDERED: ONDANSETRON 4 MG/2 ML VIAL ONE (22:19)
[2018-07-11 23:04] LABS: INR 2.12 (0.83-1.16); PROTIME(PATIENT) 22.7 SEC (12.0-15.0)
[2018-07-11] MEDS ORDERED: HYDROmorphONE/DILAUDID 2 MG/ML INJ IVP ONE (23:48)
[2018-07-12] MEDS ORDERED: HYDROmorphONE/DILAUDID 2 MG/ML INJ IVP ONE (00:11)
[2018-07-12] MEDS ORDERED: HYDROmorphONE/DILAUDID 2 MG TAB PO ONE (00:48)
[2018-07-12] MEDS ORDERED: AMOXICILLIN/CLAVULANATE POT 875/125 MG TAB PO ONE (00:57)
[2018-07-12 01:09] VITALS: BP 113/63
== END 2018-07-12 01:15 | disposition home or self-care (01) ==
LOC: CED 21:18
DX: K57.30 Diverticulosis of large intestine without perforation or abscess without bleeding (principal)
CPT/HCPCS: 74177-PO; 80053-ER; 80076-ER; 82150-ER; 85025-QW-ER; 85379-QW-ER; 96361-ER; 96374-ER; 96375-ER; 96376-ER; 99285-ER; J1170; J2270; J2405; Q9967